=== PATIENT | female | born 1990 | race Hispanic/Latino ===

== ENCOUNTER 2019-09-03 16:49 | Emergency (ER) | payer OTHER ==
[~2019-09-03] VITALS: Ht 167.6 cm; Wt 104.0 kg
[2019-09-03] MEDS ORDERED: PROZAC20 MG PO (17:00)
[2019-09-03] MEDS ORDERED: MEDDOSEPAK PO (17:25)
[2019-09-03] MEDS ORDERED: FLEXERIL PO (17:25)
[2019-09-03 17:35] VITALS: BP 142/83
== END 2019-09-03 17:35 | disposition home or self-care (01) | DRG 552 ==
LOC: ED 16:49
DX: M43.6 Torticollis (principal)